=== PATIENT | female | born 1970 | race Asian ===

== ENCOUNTER → 2024-07-04 | Day surgery (SDC) | payer OTHER ==
[~2024-07-04] MED LIST: CALC-1139 PO; CEFAZOLIN SODIUM 1000MG/VIAL ONE; DEXAMETHASONE 4MG/ML 1ML VIAL ONE; ERTU5TAB PO; FENTANYL CITRATE/PF 50MCG/ML 2ML VIAL ONE; GLIP5TAB22 PO; LISI10TA26 PO; LOVA20TA2 PO; MIDAZOLAM HCL 2 MG/2 ML VIAL ONE; ONDANSETRON HCL 4MG/2ML INJ ONE; PIOG15TA6 PO; PROPOFOL 200MG/20ML VIAL IV ONE; SEMA7TAB2 PO; TAMO20TA4 PO; VITA400T9 PO
== END | disposition home or self-care (01) ==
LOC: RAD 09:27 → EDUNIT# 10:00
PROVIDERS: ATTEND Surgery Surgical Oncology
DX: C50.412 Malignant neoplasm of upper-outer quadrant of left female breast (principal); Z79.899 Other long term (current) drug therapy
CPT/HCPCS: 19281; J0690; J1100; J2405; J2704; A4648

== ENCOUNTER 2024-07-05 06:54 | Day surgery (SDC) | payer OTHER ==
[~2024-07-05] VITALS: Ht 160 cm; Wt 45.4 kg
[~2024-07-05 06:54] MED LIST changes: -CEFAZOLIN SODIUM 1000MG/VIAL ONE; -DEXAMETHASONE 4MG/ML 1ML VIAL ONE; -FENTANYL CITRATE/PF 50MCG/ML 2ML VIAL ONE; +LIDOCAINE HCL 1% 10 MG/ML 10ML VIAL ONE; -MIDAZOLAM HCL 2 MG/2 ML VIAL ONE; -ONDANSETRON HCL 4MG/2ML INJ ONE; -PROPOFOL 200MG/20ML VIAL IV ONE; +SODIUM BICARBONATE 4% 2.4MEQ/5ML VIAL IV ONE
[2024-07-05 07:45] LABS: UCG SCREEN NEGATIVE
[2024-07-05] MEDS: SODIUM CHLORIDE 0.9% 1,000 ML IV SCH (07:56)
[2024-07-05] MEDS ORDERED: LIDOCAINE HCL 1% 10 MG/ML 10ML VIAL ONE (09:03)
[2024-07-05] MEDS ORDERED: BUPIVACAINE HCL/PF 0.5% (5MG/ML) 10ML ONE ×2 (09:04→09:12)
[2024-07-05] MEDS ORDERED: SKIN ADHESIVE 0.7 GM EA TOP ONE (09:04)
[2024-07-05] MEDS ORDERED: LIDOCAINE HCL/EPINEPHRINE 1%-EPI 1:100,000 20ML VIAL ONE (09:05)
[2024-07-05] MEDS ORDERED: METHYLENE BLUE 50MG/10ML AMP IV ONE (09:05)
[2024-07-05] MEDS ORDERED: LABETALOL 5MG/ML 4ML INJ IV PRN (10:45)
[2024-07-05] MEDS ORDERED: MEPERIDINE HCL/PF 25MG/ML CPJ IV PRN (10:45)
[2024-07-05] MEDS ORDERED: BACITRACIN 14GM TUBE TOP ONE (11:13)
[2024-07-05] MEDS: ONDANSETRON HCL 4MG/2ML INJ IV PRN (11:39)
[2024-07-05] MEDS: HYDROMORPHONE HCL/PF 1MG/ML INJ IV PRN (11:40)
[2024-07-05 12:18] VITALS: BP 103/65; PULSE 70; RESP 15
[2024-07-05] MEDS: ACETAMINOPHEN 1000MG/100ML 100 ML IV NR (12:58)
== END 2024-07-05 13:55 | disposition home or self-care (01) ==
LOC: OR 06:54
PROVIDERS: ATTEND Surgery Surgical Oncology
DX: C50.912 Malignant neoplasm of unspecified site of left female breast (principal); I10 Essential (primary) hypertension; E78.5 Hyperlipidemia, unspecified; E11.9 Type 2 diabetes mellitus without complications; Z79.84 Long term (current) use of oral hypoglycemic drugs; Z79.899 Other long term (current) drug therapy; Z98.890 Other specified postprocedural states
CPT/HCPCS: 38525; 19301; 81025; 82962; 88305; 88307; 76098; 78195; J3490 ×5; J3010; Q9968; J2250; J2405; J1171; J0131